=== PATIENT | female | born 1950 | race Caucasian/White ===

== ENCOUNTER 2017-05-03 15:20 | Inpatient (IN) | payer OTHER ==
[~2017-05-03] VITALS: Ht 170.2 cm; Wt 90.9 kg
--- NOTE | ~2017-05-03 | D ---
[facility] [place] [address] DISCHARGE SUMMARY Name: TERESA HICKS RAVEN Room #: 441-P [facility] IN M.R.#: [id number] Admission: 05/03/17 Attend Phys: Damaris Sellers Discharge: 05/08/17 Date of : 46 Report #: [id number] THIS REPORT FOR: //name// CC: Aron Forrest DATE OF SERVICE: 05/08/2017 FINAL DIAGNOSIS: Chronic obstructive pulmonary disease exacerbation. HOSPITAL COURSE: The patient was admitted with shortness of breath. She was treated for COPD with nebulized treatments and steroids. Her home medications were continued. She made steady improvement and had no other interval complications. Oxygen was successfully weaned off and sats were stable. She was walking 150 feet with a roller walker and at other times, independently in the room. PHYSICAL EXAMINATION: GENERAL: On the day of discharge, she was alert and stable. VITAL SIGNS: Stable. LUNGS: Clear, with no wheezing. HEART: Had regular sounds. ABDOMEN: Soft. EXTREMITIES: Showed no edema. DISPOSITION: She will be discharged to home with diet and activity as tolerated. Resume all home medications, with a short steroid taper. Prescription has been provided. <ELECTRONICALLY SIGNED> By: Guanakito Saucedo MD 05/08/17 1213 1026 1042 Guanakito Saucedo MD /nt
--- NOTE | ~2017-05-03 | H ---
[facility] [place] [address] HISTORY AND PHYSICAL Name: KURTTERESA RAVEN Room #: 441-P ADM IN M.R.#: [id number] Admission: 05/03/17 Attend Phys: Damaris Sellers Discharge: Date of : 46 Report #: [id number] THIS REPORT FOR: //name// CC: Aron Forrest DATE OF SERVICE: 05/04/2017 This is a patient, 66 years of age, with severe COPD, in exacerbation. HISTORY OF PRESENT ILLNESS: This is a patient who struggles with her lungs and smoking and activity level and came to the office with worsening wheezing and pain and was failing at home and subsequently admitted. PAST MEDICAL HISTORY: Noteworthy mainly for COPD, which is severe. She has oxygen dependence at times. She also has chronic back pain, underlying depression. MEDICATIONS: She uses enteric-coated aspirin, aerosolized albuterol, Celexa, Dyazide, hydrocodone, meloxicam, Norvasc, pantoprazole, potassium chloride. ALLERGIES: None. FAMILY HISTORY: Noncontributory. SOCIAL HISTORY: She is though, continues to smoke, very functionally impaired at this time. REVIEW OF SYSTEMS: No specific cardiac, GI or complaints. She mainly has chronic pain in her back and shortness of breath. PHYSICAL EXAMINATION: GENERAL: Lying in bed. She is in no distress. She is obviously wheezing. HEENT: Otherwise, negative. NECK: Supple, without thyromegaly or adenopathy. CHEST: Coarse with end expiratory wheezes. CARDIOVASCULAR: Regular rhythm without murmur. ABDOMEN: Soft and nontender. EXTREMITIES: No cyanosis, clubbing or edema. NEUROLOGIC: Nonfocal. LABORATORY PARAMETERS: Sodium of 130, potassium is being replaced and is now 3.8. Chest x-ray was basically positive for COPD. ASSESSMENT: This is a patient with severe chronic obstructive pulmonary disease [facility] [address] [place] [address] HISTORY AND PHYSICAL Name: TERESA HICKS [facility] Room #: 441-P [facility] IN [facility]#: [id number] Admission: 05/03/17 Attend Phys: Damaris Sellers Discharge: Date of : 46 Report #: [id number] who has the need for aggressive pulmonary toilet and hopes for improving her functional status with rehabilitation services. By: [id number] Aron Forrest MD /nt
--- NOTE | ~2017-05-03 | EKG ---
[address] [address] ELECTROCARDIOGRAM REPORT Name: HICKSTERESA Room #: 441- ADM IN M.R.#: [id number] Admission: 05/03/17 Attend Phys: Damaris Sellers Discharge: Date of : 46 Report #: [id number] THIS REPORT FOR: //name// [facility] Test Date: 2017-05-03 Test Time: 17:42:26 Pat Name: TERESA HICKS Department: Room: 441 Gender: F Bag Sorter: MARIA G : 1950 Requested By: Aron Forrest Order Number: [id number] MD: Leonidas Manrique Measurements Intervals [place] Rate: 55 P: 50 KS: 189 QRS: -11 QRSD: 101 T: 45 QT: 462 QTc: 442 Interpretive Statements Sinus rhythm Nonspecific T wave abnormality Compared to ECG 12/24/2014 14:42:22 Sinus bradycardia no longer present T wave abnormality now present Electronically Signed On 05-03-2017 18:30:54 CDT by Leonidas Manrique [email or web address] <ELECTRONICALLY SIGNED> By: Leonidas Manrique MD, [facility] 05/03/17 1830 [id number] [id number] Leonidas Manrique MD, [facility] /EPI
[~2017-05-03 15:20] MED LIST: ALBUTEROL2.5 MG/31 INH; AMLODIPINE BESYL5 M1 PO; ASPIRIN EC81 M1 PO; BAYER CHEWABLE81 MG PO; CELEXA 20 MG TA20 MG PO; FLEXERIL PO; GABAPENTIN600 M1 PO; HYDROCODONE-APA1 TA1 PO; LEVAQUIN 500 M500 M2 PO; LOVASTAT20 PO; MAXZIDE-25 MG1 EACH PO; MOBIC15 MG PO; MUCINEX TA600 MG/TA2 PO; NABUMETONE 500500 M1 PO; NEURONTIN 300300 M1 PO; NORCO 5-325 TA1 EACH PO; OMEPRAZOLE 20 M20 M1 PO; PREDNISONE 20 M20 MG PO; PRENATAL PO; PRILOSEC20 MG PO; TRAZODONE HCL50 MG PO; TRIAMTERENE-HC1 EAC1 PO; VENTOLIN HFA 1818 GM INH
[2017-05-03 15:40] VITALS: BP 141/62
[2017-05-03] MEDS ORDERED: VITAMIN D1000 UNI1 PO (16:57)
[2017-05-03] MEDS ORDERED: SPIRIVA INH (16:57)
[2017-05-03 17:40] LABS: ABG SAMPLE TYPE ARTERIAL; BE(vivo) 2.7 mmol/L (-2 to +3); HCO3 27.1 mmol/L (22.0-26.0); LACTATE 1.58 mmol/L (0.5-2.0); O2Hb 86.1 % (92.0-98.0); PCO2 41.1 mmHg (35.0-45.0); PO2 54.7 mmHg (80.0-100.0); STICK SITE R.RADIAL; pH 7.437 (7.360-7.450); sO2 89.5 % (92.0-98.0); tCO2 28.4 mmol/L (24.0-30.0)
[2017-05-03 17:55] LABS: ABSOLUTE NEUTROPHILS 8.2 thou/uL (1.4-8.2); BASOPHILS 0.4 % (0.0-2.0); EOSINOPHILS 0.4 % (0.0-3.0); HEMATOCRIT 39.1 % (37.0-47.0); HEMOGLOBIN 13.6 gm/dL (12.0-15.0); MCH 30.1 pg (26.0-34.0); MCHC 34.7 g/dL (28.0-37.0); MCV 86.8 fL (80.0-100.0); MONOCYTES 4.7 % (1.0-8.0); PLATELET COUNT 215 thou/uL (150-400); POLYS 76.5 % (36.0-66.0); RBC 4.51 mil/uL (4.20-5.00); RDW 13.8 % (10.5-14.5); WBC 10.8 thou/uL (4.0-11.0)
[2017-05-03 17:56] LABS: MANUAL DIFF NO
[2017-05-03 18:10] LABS: ALBUMIN 3.7 g/dL (3.4-5.0); CALCIUM 9.3 mg/dL (8.5-10.1); CREATININE 1.2 mg/dL (0.6-1.0); TOTAL BILIRUBIN 0.4 mg/dL (<0.1-1.0); TOTAL PROTEIN 7.3 g/dL (6.4-8.2)
[2017-05-03 18:12] LABS: POTASSIUM 2.9 mmol/L (3.5-5.1)
[2017-05-03 20:39] VITALS: BP 145/63
[2017-05-04 03:25] VITALS: BP 125/73
[2017-05-04 06:34] LABS: CALCIUM 8.9 mg/dL (8.5-10.1); CREATININE 1.1 mg/dL (0.6-1.0); MAGNESIUM 1.7 mg/dL (1.8-2.4); POTASSIUM 3.8 mmol/L (3.5-5.1)
[2017-05-04 08:00] VITALS: BP 134/53
[2017-05-04 16:00] VITALS: BP 121/55
[2017-05-04 20:25] VITALS: BP 125/55
[2017-05-05 03:55] VITALS: BP 127/55
[2017-05-05 07:42] VITALS: BP 146/59
[2017-05-05 16:10] VITALS: BP 145/57
[2017-05-05 19:45] VITALS: BP 127/45
[2017-05-06 04:10] VITALS: BP 155/61
[2017-05-06 08:00] VITALS: BP 138/56
[2017-05-06 16:00] VITALS: BP 136/68; BP 97/41
[2017-05-06 20:15] VITALS: BP 142/54
[2017-05-07 05:00] VITALS: BP 135/52
[2017-05-07 08:00] VITALS: BP 135/60
[2017-05-07 15:32] VITALS: BP 130/59
[2017-05-07 19:45] VITALS: BP 123/59
[2017-05-08 04:50] VITALS: BP 160/72
[2017-05-08 07:26] VITALS: BP 138/65
[2017-05-08] MEDS ORDERED: PREDNISONE 20 M20 M1 PO (08:10)
[2017-05-08 08:58] VITALS: BP 138/65
== END 2017-05-08 10:00 | disposition home or self-care (01) | DRG 189 ==
LOC: 4S 15:20
PROVIDERS: Internal Medicine
DX: J96.00 Acute respiratory failure, unspecified whether with hypoxia or hypercapnia (principal); J44.1 Chronic obstructive pulmonary disease with (acute) exacerbation; G72.9 Myopathy, unspecified; G89.29 Other chronic pain; M54.9 Dorsalgia, unspecified; F32.9 Major depressive disorder, single episode, unspecified
CPT/HCPCS: 10102

== ENCOUNTER 2019-05-21 10:59 | Inpatient (IN) | payer OTHER ==
[~2019-05-21] VITALS: Ht 172.7 cm; Wt 90.3 kg
[~2019-05-21 10:59] MED LIST changes: +PREDNISONE 20 M20 M1 PO; +SPIRIVA INH; +VITAMIN D1000 UNI1 PO
[2019-05-21 12:21] VITALS: BP 124/53
--- NOTE | 2019-05-21 18:21 | NUR ---
PATIENT ADMITTED TO ROOM FROM HOME. SHE IS ALERT ORIENTED X4. ACCOMPANIED BY . SHE STATES SHE WENT TO DR OFFICE AND SEEMS HER COPD HAS GOTTEN WORSE. SHE DOES HAVE A GOOD APPETITE. NOW SLEEPING. WILL CONT WITH PLAN OF CARE.
[2019-05-21 19:25] VITALS: BP 129/59
[2019-05-21 23:51] VITALS: BP 140/69
[2019-05-22 04:31] VITALS: BP 146/51
--- NOTE | 2019-05-22 06:44 | NUR ---
AWAITING ORDERS FOR PT. PT WAS MADE COMFORTABLE AND SLEPT COMFORTABLY OVERNIGHT. PT UPTO TOILET X1 AND USES A WALKER. VSS AND PT STATES NO PAIN OR N/V. HOURLY ROUNDING.
[2019-05-22 07:41] VITALS: BP 131/54
[2019-05-22 09:40] LABS: HEMATOCRIT 39.6 % (37.0-47.0); HEMOGLOBIN 13.7 gm/dL (12.0-15.0); MCH 30.8 pg (26.0-34.0); MCHC 34.6 g/dL (28.0-37.0); RBC 4.45 mil/uL (4.20-5.00); RDW 14.1 % (10.5-14.5); WBC 7.9 thou/uL (4.0-11.0)
[2019-05-22 09:55] LABS: ALBUMIN 3.4 g/dL (3.4-5.0); CALCIUM 9.2 mg/dL (8.5-10.1); CREATININE 1.2 mg/dL (0.6-1.0); POTASSIUM 3.5 mmol/L (3.5-5.1); TOTAL BILIRUBIN 0.5 mg/dL (<0.1-1.0); TOTAL PROTEIN 6.8 g/dL (6.4-8.2)
[2019-05-22 11:42] LABS: URINE BILIRUBIN NEGATIVE (Negative); URINE BLOOD NEGATIVE (Negative); URINE CLARITY CLEAR; URINE COLOR YELLOW; URINE GLUCOSE-RANDOM* NEGATIVE (Negative); URINE KETONES NEGATIVE (Negative); URINE LEUKOCYTES-REFLEX NEGATIVE (Negative); URINE NITRITE-REFLEX NEGATIVE (Negative); URINE PROTEIN (DIPSTICK) NEGATIVE (Negative); URINE SPECIFIC GRAVITY 1.015 (1.005-1.035); URINE UROBILINOGEN 0.2 E.U./dl (0.2-1.0)
--- NOTE | 2019-05-22 12:21 | NUR ---
INITIAL ASSESSMENT: Received consult. SW reviewed chart and spoke with nursing and attending physician. Pt was admitted from home due to COPD exacerbation. SW met with pt at bedside. Introduced role of SW. Pt is alert/orientated x 4. Pt reports she lives at home with her , who is in good health and able to assist as needed. Prior to admission, pt was independent with ADLs. Pt does have a walker. 2 steps to enter their home. No steps inside. Pt's PCP is Dr. Guillermo Forrest. Plan is for pt to discharge home. Therapy ordered to evaluate pt for discharge needs. SW is following to assist as needed with discharge planning.
[2019-05-22 12:50] LABS: BE(vivo) 0.2 mmol/L (-2 to +3); HCO3 24.1 mmol/L (22.0-26.0); PCO2 36.9 mmHg (35.0-45.0); PO2 82.6 mmHg (80.0-100.0); pH 7.433 (7.360-7.450); sO2 96.5 % (92.0-98.0)
[2019-05-22 15:34] VITALS: BP 115/65
--- NOTE | 2019-05-22 18:02 | NUR ---
ASSUMED CARE OF PT AT 0700. PT ALERT AND ORIENTED IN NO ACUTE DISTRESS. DIMINISHED/WHEEZES TO ASUCULTATION. ON ROOM AIR UP. UA UNREMARKABLE. CHEST XRAY UNREMARKABLE. LABS UNREMARKABLE. IV ABX INFUSING PER ORDER. UP W/ 1 ASSIST W/ ROLLING WALKER. COMPLAINING OF GENERALIZED PAIN - MINIMAL RELIEF WITH CURRNET MED REGIMEN. PT DENIES NEED TO CALL PHYSICIAN FOR ADDITIONAL ANALGESICS. PT PROGRESSING TOWARD POC GOALS.
[2019-05-22 19:58] VITALS: BP 128/63
[2019-05-22 23:09] VITALS: BP 127/72
--- NOTE | 2019-05-23 03:54 | NUR ---
RESUMED CARE FOR PT AGAIN THIS EVENING. VSS AND PT HAS NO COMPLAINTS. IV SITE ON LEFT HAND INFILTRATED AND NEW ACCESS WAS GAINED ON RIGHT HAND WITH 22GA. PT WAS TRANSFERRED TO ROOM 463 DUE TO CHANGE FROM [facility] TO [place]. REPORT GIVEN TO SAM SHOEMAKER AND PT WAS MOVED AT 2300.
[2019-05-23 03:59] VITALS: BP 141/61
--- NOTE | 2019-05-23 04:08 | NUR ---
Pt transferred to unit at 2300. A/OX4,VSS. Up with assist/RW. Continent of B&B.Pt c/o back pain but declined need for pain medication stating they don't work and provider is aware. Pt has FUENTES sats 97% RA. Fall safety reinforced. Resting quietly at this time eyes closed with no distress noted. Will continue to monitor pt.
[2019-05-23 07:50] VITALS: BP 144/65
--- NOTE | 2019-05-23 09:08 | H ---
[facility] [place] [address] HISTORY AND PHYSICAL Name: TERESA HICKS RAVEN Room #: 463-P ADM IN M.R.#: [id number] Admission: 05/21/19 Attend Phys: Guanakito Saucedo MD Discharge: Date of : 46 Report #: [id number] THIS REPORT FOR: //name// CC: Aron Saucedo DATE OF SERVICE: 05/21/2019 CHIEF COMPLAINT: Shortness of breath. HISTORY OF PRESENT ILLNESS: The patient is a 68-year-old female who was admitted from home with shortness of breath. She has had wheezing and nonproductive cough for several days. She was admitted for COPD exacerbation. There has been no report of fever, chills or chest pain. PAST MEDICAL HISTORY: Hypertension, chronic low back pain, COPD, history of bronchitis, history of idiopathic peripheral neuropathy, GERD, obstructive sleep apnea. She has had CPAP and uses it infrequently. PAST SURGICAL HISTORY: Appendectomy. FAMILY HISTORY: Noncontributory. SOCIAL HISTORY: She has a [id number] history of smoking. Denies chronic alcohol use. ALLERGIES: None. MEDICATIONS: Neurontin 600 mg q.i.d., meloxicam, Celexa 20 mg twice a day, Norvasc 5 mg, Protonix 20 mg, Maxzide 25 mg, Spiriva, lovastatin 20 mg, ProAir p.r.n., aspirin 81 mg. REVIEW OF SYSTEMS: As above. Denies fever, chills, nausea, vomiting, diarrhea, constipation, dysuria, syncope. She describes global weakness. OBJECTIVE: VITAL SIGNS: Temperature 36.4, pulse 53, respirations 16, blood pressure 131/54, O2 sat 94% on room air. GENERAL: She is awake and alert, in no distress. HEAD, NECK: Unremarkable. LUNGS: Have expiratory wheezing. HEART: Regular, no murmur. ABDOMEN: Obese, soft, normoactive bowel sounds. EXTREMITIES: No edema. NEUROLOGIC: Global strength 4/5 throughout. [facility] [address] [place] [address] HISTORY AND PHYSICAL Name: TERESA HICKS [facility] Room #: 3-[facility] IN M.R.#: [id number] Admission: 05/21/19 Attend Phys: Guanakito Saucedo MD Discharge: Date of : 46 Report #: [id number] LABORATORY REVIEW: Urinalysis lab work was unremarkable. Chest x-ray showed no infiltrates. ASSESSMENT: 1. Chronic obstructive pulmonary disease exacerbation. 2. Hypertension. 3. Chronic low back pain. 4. Disuse myopathy. 5. Gait disturbance. PLAN: Treated for COPD exacerbation with empiric antibiotics, steroids, and nebulized treatments. Home medications to continue. She does use a roller walker at home and is globally weak, so therapies will be initiated. <ELECTRONICALLY SIGNED> By: Guanakito Saucedo MD 05/23/19 0908 1212 1401 Guanakito Saucedo MD /charlotte
[2019-05-23 14:30] VITALS: BP 116/58
--- NOTE | 2019-05-23 20:52 | NUR ---
FALL ALARMS IN PLACE. CALLS FOR ASSIST. REPORTS PAIN MANAGED AFTER MEDS ADMINISTERED & REPORTS ACID REDUCED WITH MEDS. REMAINS ON ROOM AIR. RECEIVING BREATHING TREATMENTS.
[2019-05-23 21:09] VITALS: BP 120/52
--- NOTE | 2019-05-24 03:22 | NUR ---
ASSUMED CARE OF PT AT 1900HRS. PT IS A0X4 AND LETS NEEDS BE KNOWN. FALL PRECAUTION IN PLACE. PT REPORTED SOME PAIN AND WAS TREATED WITH PRN MEDS. NO OTHER S/S OF ACUTE DISTRESS. WILL CONTINUE TO MONITOR.
[2019-05-24 08:00] VITALS: BP 131/51
[2019-05-24 15:00] VITALS: BP 116/57
--- NOTE | 2019-05-24 15:30 | NUR ---
CM FOLLOWED UP WITH PT AT BEDSIDE THIS DAY AND SHE INDICATED THAT SHE IS RECEPTIVE TO HOME HEALTH UPON DC. PT INDICATED SHE WANTED TO [facility] SHE HAD WORKED FOR THEM IN THE PAST. ANTICPATED DC MONDAY PER PHYSICIAN. CM FOLLOWING INDICATED WITH DC PLANNING.
--- NOTE | 2019-05-24 15:50 | NUR ---
DISCHARGE PLANNING. ANTICIPATED DISCHARGE FOR MONDAY. HOME HEALTH RECOMMENDED AT DISCHARGE. REFERRAL FAXED TO [facility] PER PATIENT REQUEST. CALL PLACED TO [facility], SPOKE WITH NAMRATA. VERBAL REFERRAL GIVEN OVER THE PHONE. CLINICALS NOT AVAILABLE AT THE TIME. PER NAMRATA, ACCEPTING OF PATIENT AT DISCHARGE, START OF SERVICE DATE PLANNED FOR MONDAY. UNIT SW NOTIFIED. FOLLOWING TO ASSIST WITH DISCHARGE NEEDS.
[2019-05-24 15:54] VITALS: BP 131/51
[2019-05-24 19:39] VITALS: BP 148/82
--- NOTE | 2019-05-25 05:23 | NUR ---
ASSUMED CARE OF PT AT 1900HRS. PT IS AOX4 AND INDEPENDENT WITH A WALKER. REPORTED SOME PAIN AND WAS TREATED WITH PRN PAIN MEDS. PT DOES EXPERIENCE SOB WITH EXERTION. PT WAS ABLE TO SLEEP PART OF THE SHIFT. NO S/S OF ACUTE DISTRESS. WILL CONTINUE TO MONITOR.
[2019-05-25 07:00] VITALS: BP 142/57
--- NOTE | 2019-05-25 16:04 | NUR ---
AAOX4 PLEASANT AND COOPERTIVE. DENIES PAIN. REPORTS FEELING STRONGER EVERY DAY. UP WITH SBA USING WALKER SLOW STEADY GAIT. VOIDS PER RESTROOM. GOOD APPEITE FOR MEALS. IV LEFT WRIST. DENIES PAIN.
[2019-05-25 16:07] VITALS: BP 147/65
[2019-05-25 20:31] VITALS: BP 132/48
[2019-05-26 07:50] VITALS: BP 143/50
--- NOTE | 2019-05-26 11:06 | NUR ---
PT A/O X4 DENIES PAIN, VSS, VOIDING QS AND NO OTHER PROBLEMS NOTED ON ROOM AIR LUNGS CLEAR WITH DIMINISHED BASES PLAN TO DC HOME TOMORROW
--- NOTE | 2019-05-26 15:59 | NUR ---
ASSUMED CARE AT 0700. PT A&OX4. PT VERY PLEASANT AND COOPERATIVE. PT STATES SHE PLANS ON BEING D/C HOME TOMORROW. PT STEADY WITH USE OF PERSONAL WALKER AND CALLS OUT APPROPRIATELY. PT COMPLAINED OF GENERALIZED PAIN AND AFTER ORDERED PAIN MEDICATION WAS GIVEN, PT STATES RELIEF. WILL CONTINUE TO MONITOR PT.
[2019-05-26 20:52] VITALS: BP 144/73
--- NOTE | 2019-05-27 03:09 | NUR ---
ASSUMED CARE OF PT @1900. PT A&OX4. ADLIB IN THE ROOM WITH A WALKER. PT HAS STEADY GAIT. PT C/O OF GENERALIZED PAIN. RELIEVED WITH ORDERED PAIN MED. V/S STABLE. CALL [facility] WITHIN REACH
[2019-05-27 03:18] VITALS: BP 133/70
[2019-05-27 08:00] VITALS: BP 122/57
[2019-05-27] MEDS ORDERED: MUCINEX600 MG PO (12:17)
[2019-05-27] MEDS ORDERED: CEFDINIR300 MG PO (12:17)
[2019-05-27] MEDS ORDERED: FLOVENT HFA 4444 MCG INH (12:18)
[2019-05-27] MEDS ORDERED: PREDNISONE 20 M20 MG PO (12:18)
--- NOTE | 2019-05-27 12:53 | NUR ---
PATIENT WILL BE DISCHARGED AT THIS TIME TO HOME. SHE IS ALERT ORIENTED X4. NO COMPLAINTS OF PAIN OR IN DISTRESS. WILL CONT WITH PLAN OF CARE.
[2019-05-27 13:31] VITALS: BP 131/51
--- NOTE | 2019-05-27 14:23 | NUR ---
CARE TEAM INDICATED THAT PT WAS MEDICALLY STABLE TO DC HOME THIS DAY WITH NO NEEDS. PT NOT NEEDING [facility]. PT DISCHARGE HOME VIA FAMILY WITH NO NEEDS. NO OTHER CM INTERVENTION INDICATED. CASE CLOSED.
--- NOTE | 2019-06-06 08:43 | D ---
[facility] [place] [address] DISCHARGE SUMMARY Name: TERESA HICKS RAVEN Room #: 463-P [facility] IN M.R.#: [id number] Admission: 05/21/19 Attend Phys: Guanakito Saucedo MD Discharge: 05/27/19 Date of : 46 Report #: [id number] THIS REPORT FOR: //name// CC: Aron Saucedo FINAL DIAGNOSES: 1. Chronic obstructive pulmonary disease exacerbation. 2. Hypertension. HOSPITAL COURSE: The patient is admitted with shortness of breath. She was treated for COPD exacerbation with antibiotics, steroids, nebulized treatments. She progressed with conservative treatment, quite well. She had no other interval complications. Physical therapy worked with her to regain some strength and mobility. PHYSICAL EXAMINATION: On the day of discharge: GENERAL: She was awake and alert. VITAL SIGNS: Stable. LUNGS: Clear with no wheezing. HEART: Regular. ABDOMEN: Soft, normoactive bowel sounds. EXTREMITIES: Showed no edema. DISPOSITION: She is discharged to home with diet and activity as tolerated, resume all home medications with the addition of Flovent 2 puffs twice a day, prednisone 20 mg a day for 5 days, Omnicef 300 mg b.i.d. for 5 days and Mucinex twice a day for 2 weeks. Follow up with Dr. Forrest in 1-2 weeks. <ELECTRONICALLY SIGNED> By: Aron Forrest MD 06/06/19 0843 1244 1250 MD melissa Stack
== END 2019-05-27 14:26 | disposition home or self-care (01) | DRG 192 ==
LOC: 3W 10:59 → 3N 17:38 → 4W 05-22 23:05
PROVIDERS: Internal Medicine Geriatric Medicine; ADMIT Internal Medicine
DX: J44.1 Chronic obstructive pulmonary disease with (acute) exacerbation (principal); I10 Essential (primary) hypertension; G62.9 Polyneuropathy, unspecified; K21.9 Gastro-esophageal reflux disease without esophagitis; G47.33 Obstructive sleep apnea (adult) (pediatric); M54.5 Low back pain; G89.29 Other chronic pain; G72.89 Other specified myopathies; Z90.49 Acquired absence of other specified parts of digestive tract; Z87.891 Personal history of nicotine dependence; Z79.899 Other long term (current) drug therapy
CPT/HCPCS: 10047; 10779

== ENCOUNTER → 2019-06-26 | Outpatient (CLI) | payer OTHER ==
[~2019-06-26] MED LIST changes: +CEFDINIR300 MG PO; +FLOVENT HFA 4444 MCG INH; +MUCINEX600 MG PO
== END ==
LOC: RAD 15:32
DX: M17.11 Unilateral primary osteoarthritis, right knee (principal); G60.9 Hereditary and idiopathic neuropathy, unspecified; M25.861 Other specified joint disorders, right knee; M25.761 Osteophyte, right knee